=== PATIENT | female | born 1950 | race Caucasian/White ===

== ENCOUNTER 2018-07-21 13:34 | Inpatient (IN) ==
[2018-07-21] MEDS ORDERED: 0.9 % Sodium Chloride 1,000 ML IVC ONE (14:24)
--- NOTE | 2018-07-21 14:29 | Emergency Department Note ---
Disposition Clinical Impression: Hypernatremia, Anorexia, Severe dehydration, Protein malnutrition, Unable to maintain weight Failure to thrive Qualifiers: Failure to thrive age range: in adult Qualified Code(s): R62.7 - Adult failure to thrive Disposition: Admitted As Inpatient Condition: Fair General Adult HPI - General Chief complaint: ED General Medical Stated complaint: Dehydration Time Seen by Provider: 07/21/18 13:58 Source: patient Limitations: no limitations - History of Present Illness Pain Scale: 8 - Related Data Home Medications Medication Instructions Recorded Confirmed RX: Cyanocobalamin (Vitamin B-12) 500 mcg PO DAILY 07/14/16 07/21/18 [B-12] RX: Ergocalciferol (VITAMIN D2) 400 unit PO DAILY 07/14/16 07/21/18 [Vitamin D] RX: Folic Acid 0.4 mg PO DAILY 07/14/16 07/21/18 RX: Folic Acid/Multivit-Min/Lutein 1 tab PO DAILY 07/14/16 07/21/18 [Centrum Silver Chewable Tablet] RX: Megestrol Acetate [Megace] 400 mg PO TIDWM 07/14/16 07/21/18 RX: Potassium Chloride [Klor-Con 10 meq PO BID 07/14/16 07/21/18 Sprinkle] RX: Pyridoxine HCl [Vitamin B-6] 50 mg PO DAILY 07/14/16 07/21/18 RX: Raloxifene [Evista] 60 mg PO DAILY 08/19/16 07/21/18 RX: Omeprazole 20 mg PO DAILY 12/26/16 07/21/18 Previous Rx's Medication Instructions Recorded RX: Buspirone HCl [Buspar] 5 mg PO BID 30 Days tablet 08/21/16 Allergies Allergy/AdvReac Type Severity Reaction Status Date / Time No Known Allergies Allergy Verified 03/20/18 15:26 Past Medical History - Past Medical History Medical history: Reports: arthritis, other Surgical history: Reports: herniorrhaphy, orthopedic, other, other Psychiatric history: Reports: anxiety, depression 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 - Social History Smoking Status: Never smoker Smokeless Tobacco Status: No Alcohol use: Reports: none Drug use: Reports: none Physical Exam - General Limitations: no limitations General appearance: alert Course Vital Signs Temperature 98.3 F 07/21/18 13:52 Pulse Rate 80 07/21/18 13:52 Respiratory Rate 14 07/21/18 13:52 Blood Pressure 119/74 07/21/18 13:52 O2 Sat by Pulse Oximetry 99 07/21/18 13:52 Temperature 98.3 F 07/21/18 14:00 Pulse Rate 64 07/21/18 15:34 Respiratory Rate 15 07/21/18 15:34 Blood Pressure 144/77 07/21/18 15:34 O2 Sat by Pulse Oximetry 100 07/21/18 15:34 Oxygen Delivery Oxygen Delivery Room Air Medical Decision Making - Lab Data Result diagrams: 07/21/18 14:40 07/21/18 14:40 Lab Results 07/21/18 07/21/18 Range/Units 14:40 14:40 WBC 5.6 (4.3-11.1) K/mcL RBC 4.60 (3.82-4.97) M/mcL Hgb 13.9 (11.5-15.4) g/dL Hct 45.5 H (35.3-44.9) % MCV 98.9 (83.0-100.0) fL MCH 30.2 (28.0-33.3) pg MCHC 30.5 L (31.6-35.5) g/dL RDW 13.4 (11.5-14.5) % Plt Count 196 (140-400) K/mcL MPV 11.3 (9.4-12.4) fL Immature Gran % 0.2 (0-4) % Seg Neutrophils % 58.7 % Lymphocytes % 30.5 % Monocytes % 6.3 % Eosinophils % 3.4 % Basophils % 0.9 % Neutrophils # 3.3 (1.6-8.9) K/mcL Lymphocytes # 1.7 (0.6-4.6) K/mcL Monocytes # 0.4 (0.0-1.3) K/mcL Eosinophils # 0.2 (0.0-0.6) K/mcL Basophils # 0.1 (0.0-0.2) K/mcL Sodium 156 H (136-145) mEq/L Potassium 3.7 (3.5-5.1) mEq/L Chloride 117 H (98-107) mEq/L Carbon Dioxide 29 (23-29) mEq/L BUN 38 H (8-23) mg/dL Creatinine 1.22 H (0.60-1.20) mg/dL Est GFR ( Amer) 53 L (> 60) Est GFR (Non-Af Amer) 44 L (> 60) BUN/Creatinine Ratio 31 H (6-26) Glucose 89 (70-105) mg/dL Calculated Osmolality 331 H (280-300) Calcium 9.8 (8.6-10.3) mg/dL Magnesium 2.1 (1.6-2.6) mg/dL Attestation Statement - Attestation Attestation: Resident Attestation: I examined this patient and my medical decision making was reviewed with the Resident Physician. I agree with the documented findings, disposition and treatment plan as described except to the extent set forth below. We independently had [id number] contact with the patient. Resident physician Dr. Hector Soares Please see resident note for further details an disposition Patient with a history of anxiety, depression, eating disorder, hypernatremia, chronic kidney disease presenting today for evaluation of concern for dehydration. She states that she has a chronic problem with an elevated sodium and not being able to drink enough water. Her last admission she had been told by nephrology that she does drink a gallon of water daily. Patient states she has been unable to keep up with this request. The patient is known to me as I have told him multiple times in the past. She has had sodiums as high as 170. She has had acute kidney injury with a creatinine as high as 4. She states that her skin in her mouth feel dry. She had an episode of feeling lightheaded that self resolved. She has not had any fevers chills chest pain cough abdominal pain or change in bowel movements. Patient will undergo further evaluation of both her sodium as well as creatinine, urinalysis and IV hydration therapy. Labs pending. Disposition pending.
[2018-07-21 15:18] LABS: Calcium 9.8 mg/dL (8.6-10.3); Magnesium 2.1 mg/dL (1.6-2.6); Potassium 3.7 mEq/L (3.5-5.1)
[2018-07-21 15:34] LABS: Basophils # 0.1 K/mcL (0.0-0.2); Basophils % 0.9 %; Eosinophils # 0.2 K/mcL (0.0-0.6); Eosinophils % 3.4 %; Hematocrit 45.5 % (35.3-44.9); Hemoglobin 13.9 g/dL (11.5-15.4); Immature Granulocytes % 0.2 % (0-4); Lymphocytes # 1.7 K/mcL (0.6-4.6); Lymphocytes % 30.5 %; Mean Corpuscular HGB Conc 30.5 g/dL (31.6-35.5); Mean Corpuscular Hemoglobin 30.2 pg (28.0-33.3); Mean Corpuscular Volume 98.9 fL (83.0-100.0); Mean Platelet Volume 11.3 fL (9.4-12.4); Monocytes # 0.4 K/mcL (0.0-1.3); Monocytes % 6.3 %; Neutrophils # 3.3 K/mcL (1.6-8.9); Platelet Count 196 K/mcL (140-400); Red Cell Distribution Width 13.4 % (11.5-14.5); Segmented Neutrophils % 58.7 %
--- NOTE | 2018-07-21 16:13 | Emergency Department Note ---
Disposition Clinical Impression: Hypernatremia, Anorexia, Severe dehydration, Protein malnutrition, Unable to maintain weight Failure to thrive Qualifiers: Failure to thrive age range: in adult Qualified Code(s): R62.7 - Adult failure to thrive Disposition: Admitted As Inpatient Condition: Fair Referrals: Asher Washington Jr, MD [Primary Care Provider] - Forms: ED Satisfaction Letter, Work/School Release Time of Disposition: 15:37 General Adult HPI - General Chief complaint: ED General Medical Stated complaint: Dehydration Time Seen by Provider: 07/21/18 13:58 Source: patient Mode of arrival: ambulatory Limitations: no limitations Nursing Notes Reviewed: Yes Vital Signs Reviewed: Yes - History of Present Illness HPI Narrative: Patient presents to the ED with the chief complaint of dehydration. Patient has multiple psychiatric histories with eating disorders which is led to chronic dehydration and hypernatremia. She has not had a formal diagnosis yet. States that she tries to keep up with her eating, but she is just unable to adequately take care of herself since her 3 years ago. She is presenting today with dehydration. States that she has been trying to eat and drink that she just cannot. Complaining of very dry, cracked lips. No fever or chills. No chest pain or shortness of breath. Denies any abdominal pain. Has had some decreased urination. No rashes or other concerns. Pain Scale: 8 - Related Data Home Medications Medication Instructions Recorded Confirmed Cyanocobalamin (Vitamin B-12) 500 mcg PO DAILY 07/14/16 04/07/18 [B-12] Ergocalciferol (VITAMIN D2) 400 unit PO DAILY 07/14/16 04/07/18 [Vitamin D] Folic Acid 0.4 mg PO DAILY 07/14/16 04/07/18 Folic Acid/Multivit-Min/Lutein 1 tab PO DAILY 07/14/16 04/07/18 [Centrum Silver Chewable Tablet] Megestrol Acetate [Megace] 400 mg PO TIDWM 07/14/16 04/07/18 Potassium Chloride [Klor-Con 10 meq PO BID 07/14/16 04/07/18 Sprinkle] Pyridoxine HCl [Vitamin B-6] 50 mg PO DAILY 07/14/16 04/07/18 Raloxifene [Evista] 60 mg PO DAILY 08/19/16 04/07/18 Omeprazole 20 mg PO DAILY 12/26/16 04/07/18 Previous Rx's Medication Instructions Recorded Buspirone HCl [Buspar] 5 mg PO BID 30 Days tablet 08/21/16 Mirtazapine [Remeron] 7.5 mg PO HS 30 Days tablet 08/21/16 Acetaminophen [Tylenol] 500 mg PO Q6HR PRN #20 tablet 12/12/17 Allergies Allergy/AdvReac Type Severity Reaction Status Date / Time No Known Allergies Allergy Verified 03/20/18 15:26 Review of Systems: As reviewed in the HPI. All other systems reviewed are negative or normal. Past Medical History - Past Medical History Attestation: Yes The following information was validated with the patient. 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 history - Social History Smoking Status: Never smoker Smokeless Tobacco Status: No Alcohol use: Reports: none Drug use: Reports: none Physical Exam CONSTITUTIONAL: [Chronically ill, cachectic] EYES: [EOMI, clear conjunctiva, PERRLA] HENT: [Normocephalic, atraumatic, dry and cracked mucus membranes, normal oropharynx] NECK: [normal inspection, full ROM, trachea midline, no obvious swelling] PULMONARY: [normal lung sounds bilaterally, normal chest rise and fall, no respiratory distress or stridor, no wheezes, no rales, no rhonchi CARDIOVASCULAR: [regular rate, regular rhythm, normal heart sounds, no murmurs, distal extremities are warm and well perfused] GASTROINSTESTINAL: [soft, non-tender, non-rigid, non-distended, no guarding, no rebound, normal bowel sounds] GENITOURINARY/RECTAL: [deferred] NEUROLOGIC: [Alert, oriented x3, normal speech, moves all extremities] EXTREMITIES: [Normal inspection, full ROM, no tenderness, no pedal edema, normal capillary refill] MUSCULOSKELETAL: [no gross deformities, atraumatic] SKIN: [No cyanosis, no diaphoresis, normal color, warm, no rash] PSYCHIATRIC: [Flat affect]+ - General Limitations: no limitations General appearance: alert Course Course Narrative: frail appearing 67 year old presenting with dehydration. States she feels like she may need to be admitted since she hasn't been able to eat/drink lately. Will check labs. patient is hyperNa and Cl. Did not receive initial NS bolus so will switch to 1/2NS and eventually D51/2 for MIVF. Admitted to Dr. jacob for MYLES and rehydration. Vital Signs Temperature 98.3 F 07/21/18 13:52 Pulse Rate 80 07/21/18 13:52 Respiratory Rate 14 07/21/18 13:52 Blood Pressure 119/74 07/21/18 13:52 O2 Sat by Pulse Oximetry 99 07/21/18 13:52 Temperature 98.3 F 07/21/18 14:00 Pulse Rate 80 07/21/18 14:00 Respiratory Rate 14 07/21/18 14:00 Blood Pressure 119/74 07/21/18 14:00 O2 Sat by Pulse Oximetry 99 07/21/18 14:00 Oxygen Delivery Oxygen Delivery Room Air Medical Decision Making - Lab Data Result diagrams: 07/21/18 14:40 Lab Results 07/21/18 Range/Units 14:40 Sodium 156 H (136-145) mEq/L Potassium 3.7 (3.5-5.1) mEq/L Chloride 117 H (98-107) mEq/L Carbon Dioxide 29 (23-29) mEq/L BUN 38 H (8-23) mg/dL Creatinine 1.22 H (0.60-1.20) mg/dL Est GFR ( Amer) 53 L (> 60) Est GFR (Non-Af Amer) 44 L (> 60) BUN/Creatinine Ratio 31 H (6-26) Glucose 89 (70-105) mg/dL Calculated Osmolality 331 H (280-300) Calcium 9.8 (8.6-10.3) mg/dL Magnesium 2.1 (1.6-2.6) mg/dL
[2018-07-21 16:39] LABS: Bilirubin,Urine Moderate (Negative); Blood,Urine Negative (Negative); Clarity,Urine Clear (Clear); Ketones,Urine Trace mg/dL (Negative); Leukocyte Esterase,Urine Trace (Negative); Nitrite,Urine Negative (Negative); PH,Urine 5.5 pH Units (5.0-8.0); Protein,Urine 100 mg/dL (Neg-Trace); Urobilinogen,Urine Normal (Normal)
[2018-07-21 16:41] LABS: Bacteria,Urine None Seen per hpf (None-Few); Squamous Epithelial Cell,Urine Many per lpf (None-Few)
[2018-07-21 16:45] LABS: Color,Urine Yellow (Yellow); Glucose,Urine (UA) Normal (Normal)
[2018-07-21 17:03] LABS: Mucus,Urine Many (Few)
[2018-07-21 17:04] LABS: Calcium Oxalate Crystals,Urine Present; Hyaline Casts,Urine Few per lpf (None-Few)
--- NOTE | 2018-07-21 17:07 | Internal Med History&Physical ---
<Van Herrera - Last Filed: 07/21/18 17:56> Date of Encounter: 07/21/18 Time of Encounter: 17:01 Internal Medicine - H&P: HPI Chief complaint: dehydration Admitted From: Home Plans for Post Hospital Care: Home History of present illness: Ms. Coy is a 67 year old female presented to [facility] ED today with concerns for dehydration with dizziness and weakness last night. Past medical history of depr ession,anxiety, chronic hypernatremia, chronic kidney disease, eating disorder/anorexia. Patient presented to the emergency department with an elevated sodium of 156 (appears average Sodium ranges from 140-150s, has been as high as 180). UA negative for infection, though with trace ketones and moderate bilirubin. Cr elevated at 1.22 but this is only slightly up from last Cr of 1.13 on 04/11/18. Patient states she tries very hard to drink 1 gallon of water per day as recommended by the reception centre manager that she previously saw while inpatient for dehydration in March 2018. At that time workup was done ruling out Diabetes Insipidus. She did not follow up in the Nephrology Clinic. Follows with PCP, Dr. Washington. States only ate breakfast today. but has been drinking water more frequently since dizziness last night, dizziness since resolved. No syncope, falls, confusion. She denies dysphagia, dyspnea, chest pain, abdominal pain, nausea, vomiting, diarrhea, dysuria, edema, numbness or tingling. Admits chronic R hip pain, controlled with 1 Aleve daily (in the AM). Past Med Surg Social Fam HX - Past Medical History Medical history: arthritis, other Additional medical history: anxiety. HISTORY OF GASTRIC ULCER. VERTIGO Psychiatric history: anxiety, depression - Past Surgical History Surgical History: herniorrhaphy, orthopedic, other, other Additional surgical history: egd,ear,tonsils,vulvar bx,colonoscopy - Social History Smoking Status: Never smoker Smokeless Tobacco Status: No Alcohol use: none Drug use: none - Family History Brother Living Status: Hx Family Cardiac Disorders: Yes Internal Medicine - H&P: Meds Cyanocobalamin (Vitamin B-12) [B-12] 500 mcg PO DAILY 07/14/16 [History] Ergocalciferol (VITAMIN D2) [Vitamin D] 400 unit PO DAILY 07/14/16 [History] Folic Acid 0.4 mg PO DAILY 07/14/16 [History] Folic Acid/Multivit-Min/Lutein [Centrum Silver Chewable Tablet] 1 tab PO DAILY 07/14/16 [History] Megestrol Acetate [Megace] 400 mg PO TIDWM 07/14/16 [History] Potassium Chloride [Klor-Con Sprinkle] 10 meq PO BID 07/14/16 [History] Pyridoxine HCl [Vitamin B-6] 50 mg PO DAILY 07/14/16 [History] Raloxifene [Evista] 60 mg PO DAILY 08/19/16 [History] Buspirone HCl [Buspar] 5 mg PO BID 30 Days tablet 08/21/16 [Rx] Omeprazole 20 mg PO DAILY 12/26/16 [History] Allergy/AdvReac Type Severity Reaction Status Date / Time No Known Allergies Allergy Verified 03/20/18 15:26 All Systems PM: A 10-system review of systems was performed and is negative for pertinent findings except as documented above in the HPI. - Constitutional Vitals: Temp Pulse Resp BP Pulse Ox 97.7 F 62 14 147/45 94 07/21/18 16:42 07/21/18 16:42 07/21/18 16:42 07/21/18 16:42 07/21/18 16:42 General appearance: Present: cachectic, cooperative, A&O X 3, pleasant, no acute distress, answers questions appropriately Exam: . - Head Head exam: Present: atraumatic, normocephalic - Eye Eye exam: Present: PERRL, conjuntiva pink, sclera anicteric Pupils: Present: PERRL - Neck Neck exam general surgery: Present: full ROM, supple, trachea midline - Respiratory Respiratory exam: Present: CTAB. Absent: accessory muscle use, rales, rhonchi, wheezes - Cardiovascular Cardiovascular exam: Present: RRR, +S1, +S2. Absent: diastolic murmur, gallop, rubs, systolic murmur - GI/Abdominal GI/Abdominal exam: Present: normal bowel sounds, soft, no peritoneal signs. Absent: distended, tenderness - Extremities Exam Extremities exam: Present: warm, radial pulses palpable and symmetrical. Absent: calf tenderness, cyanotic, pedal edema - Neurological Exam Neurological exam: Present: alert, oriented X3, no focal deficits, strengths equal and symetr throughout. Absent: facial droop, speech deficit - Psychiatric Psychiatric exam: Present: normal affect, normal mood - Skin Skin exam: Present: dry, intact Internal Med - H&P Results - Labs CBC & Chem 7: 07/21/18 14:40 07/21/18 14:40 Labs: Short CBC 07/21/18 Range/Units 14:40 WBC 5.6 (4.3-11.1) K/mcL Hgb 13.9 (11.5-15.4) g/dL Hct 45.5 H (35.3-44.9) % Plt Count 196 (140-400) K/mcL Neutrophils # 3.3 (1.6-8.9) K/mcL BMP 07/21/18 14:40 Sodium 156 H Potassium 3.7 Chloride 117 H Carbon Dioxide 29 BUN 38 H Creatinine 1.22 H Glucose 89 Calcium 9.8 Urine 07/21/18 Range/Units 15:17 Urine Color Yellow (Yellow) Urine Clarity Clear (Clear) Urine pH 5.5 (5.0-8.0) pH Units Ur Specific [place] 1.020 (1.010-1.025) Urine Protein 100 H (Neg-Trace) mg/dL Urine Glucose (UA) Normal (Normal) mg/dL - Assessment and plan (1) Hypernatremia Current Visit: Yes Status: Acute Assessment and plan: Acute on Chronic hypernatremia, above baseline with Sodium 156. Patient received NS bolus in the ED. Plan to continue rehydration with D5 1/2NS. Will check BMP Q6H to monitor electrolytes. May need to adjust monitor frequency and fluids if correcting too quickly. (2) Dehydration Current Visit: Yes Status: Acute Assessment and plan: Recurrent dehydration. Last admitted for dehydration March 2018. Likely 2/2 to eating disorder, poor PO intake. Dizziness resolved prior to admission. See plan above for rehydration. (3) Anorexia Current Visit: Yes Status: Chronic Assessment and plan: Anorexia and severe protein malnutrition with BMI of 12.6 Restarting patient's home psych meds. Likely would benefit from psych follow up. Will also start remeron for appetite stimulation. Ensure with meals. Consider nutrition evaluation. (4) Protein malnutrition Current Visit: Yes Status: Chronic Assessment and plan: see plan for anorexia (5) Body mass index (BMI) less than 16.5 Current Visit: Yes Status: Chronic (6) CKD (chronic kidney disease), stage III Current Visit: No Status: Chronic Assessment and plan: Creatinine elevated at 1.22. This is only slightly elevated from baseline (1.0- 1.1) Creatinine was 1.13 at discharge on 04/11/18). Possible start of MYLES with dehydration. Treatment with fluid as above. Will continue to monitor kidney function. Work to avoid nephrotoxic medications. Patient takes Aleve daily, will attempt to control pain with only tylenol, could consider restarting NSAID if kidney function stablizes. (7) Chronic right hip pain Current Visit: Yes Status: Chronic Assessment and plan: chronic,controlled on Aleve 220mg once daily. Holding for elevate creatinine. Will start PRN tylenol for pain. Will continue to follow and reassess for pain management. - Time Spent With Patient Total time spent is greater than 50% in coordination of care (as documented) at patient's floor/unit and/or counseling patient: 25 - 35 minutes <Angela Stark - Last Filed: 07/22/18 07:41> Time of Encounter: 17:30 Internal Medicine - H&P: HPI History of present illness: Ms. Coy is a 67 year old female All Systems PM: A 10-system review of systems was performed and is negative for pertinent findings except as documented above in the HPI. - Constitutional Vitals: Temp Pulse Resp BP Pulse Ox 98.3 F 62 14 108/64 97 07/22/18 06:50 07/22/18 06:50 07/22/18 06:50 07/22/18 06:50 07/22/18 06:50 Internal Med - H&P Results - Labs CBC & Chem 7: 07/21/18 14:40 07/22/18 02:00 Labs: Short CBC 07/21/18 Range/Units 14:40 WBC 5.6 (4.3-11.1) K/mcL Hgb 13.9 (11.5-15.4) g/dL Hct 45.5 H (35.3-44.9) % Plt Count 196 (140-400) K/mcL Neutrophils # 3.3 (1.6-8.9) K/mcL BMP 10/30/18 10/30/18 10/31/18 14:40 19:54 02:00 Sodium 156 H 156 H 152 H Potassium 3.7 3.2 L 3.2 L Chloride 117 H 116 H 118 H Carbon Dioxide 29 30 H 29 BUN 38 H 34 H 32 H Creatinine 1.22 H 1.04 1.00 Glucose 89 92 100 Calcium 9.8 9.3 8.5 L Urine 07/21/18 Range/Units 15:17 Urine Color Yellow (Yellow) Urine Clarity Clear (Clear) Urine pH 5.5 (5.0-8.0) pH Units Ur Specific [place] 1.020 (1.010-1.025) Urine Protein 100 H (Neg-Trace) mg/dL Urine Glucose (UA) Normal (Normal) mg/dL - Time Spent With Patient Total time spent is greater than 50% in coordination of care (as documented) at patient's floor/unit and/or counseling patient: - Attending Attestation I saw evaluated and examined this patient and my medical decision-making was reviewed with the Resident Physician, Van Herrera. I agree with the documented findings, disposition and treatment plan as described except to any changes set forth below. We independently had [id number] contact with the patient. 67-year-old female patient with history of chronic hyponatremia presented to to the ER with complaints of dehydration. Patient reports that she has been feeling weak and tired. She does have poor appetite and has not been able to eat much recently due to issues with her dentures. She got new dentures and has been able to eat better but now she is also having trouble to prepare meals due to chronic right-sided hip pain. She does not have any trouble swallowing. She denies any nausea or vomiting. She denies any diarrhea. General: Patient is alert, no acute distress, oriented x 3 underweight Respiratory: Good respiratory effort. Normal breath sounds. No wheezing or crackles. Cardiovascular: Regular rate and rhythm. s1 and s2 normal No clicks, rubs, gallops, or murmurs. No pedal edema Abdomen: Abdomen is soft, nontender. Bowel sounds are present Musculoskeletal: Spontaneously moving all extremities Skin: warm, dry, intact. Neuro: Alert oriented x 3 normal cranial nerves, no focal deficits Sodium 156, chloride 117, BNP 38, creatinine 1.22. Patient with acute hypernatremia on chronic hypernatremia: Patient with acute on chronic hyponatremia. Most likely related to dehydration and inadequate water intake. Has been evaluated by nephrology and past for the same condition but has not been able to follow up with them as outpatient. Continue to monitor sodium levels while infusing D5 half NS. Monitor closely to allow for less than 8-10 decrease in Na per 24 hrs. Anorexia: Most likely related to underlying depression. We will restart Megace. Also place patient on Remeron. Dehydration: Continue IV fluids. Monitor renal function and urine output closely. Depression: Patient does need to follow up with psychiatry as outpatient. For now we will start Remeron. Patient takes buspar for anxety. Will resumethis medication also. Chronic kidney disease stage III: Patient does appear to have chronic kidney disease stage III. And showed baseline because all the labs that we have here during her hospitalization here. We will follow renal function closely as she received IV fluids. Monitor input and output.
[2018-07-21] MEDS ORDERED: Acetaminophen 325 MG TABLET PO PRN (18:00)
--- NOTE | 2018-07-21 18:03 | Event Note ---
Date of Encounter: 07/21/18 Time of Encounter: 17:30 I saw evaluated and examined this patient and my medical decision-making was reviewed with the Resident Physician, Van Herrera. I agree with the documented findings, disposition and treatment plan as described except to any changes set forth below. We independently had [id number] contact with the patient. 67-year-old female patient with history of chronic hyponatremia presented to to the ER with complaints of dehydration. Patient reports that she has been feeling weak and tired. She does have poor appetite and has not been able to eat much recently due to issues with her dentures. She got new dentures and has been able to eat better but now she is also having trouble to prepare meals due to chronic right-sided hip pain. She does not have any trouble swallowing. She denies any nausea or vomiting. She denies any diarrhea. General: Patient is alert, no acute distress, oriented x 3 underweight Respiratory: Good respiratory effort. Normal breath sounds. No wheezing or crackles. Cardiovascular: Regular rate and rhythm. s1 and s2 normal No clicks, rubs, gallops, or murmurs. No pedal edema Abdomen: Abdomen is soft, nontender. Bowel sounds are present Musculoskeletal: Spontaneously moving all extremities Skin: warm, dry, intact. Neuro: Alert oriented x 3 normal cranial nerves, no focal deficits Sodium 156, chloride 117, BNP 38, creatinine 1.22. Patient with acute hypernatremia on chronic hypernatremia: Patient with acute on chronic hyponatremia. Most likely related to dehydration and inadequate water intake. Has been evaluated by nephrology and past for the same condition but has not been able to follow up with them as outpatient. Continue to monitor sodium levels while infusing D5 half NS. Monitor closely to allow for less than 8-10 decrease in Na per 24 hrs. Anorexia: Most likely related to underlying depression. We will restart Megace. Also place patient on Remeron. Dehydration: Continue IV fluids. Monitor renal function and urine output closely. Depression: Patient does need to follow up with psychiatry as outpatient. For now we will start Remeron. Patient also reportedly takes citalopram. Will resume restart this medication also. Chronic kidney disease stage III: Patient does appear to have chronic kidney disease stage III. And showed baseline because all the labs that we have here during her hospitalization here. We will follow renal function closely as she received IV fluids. Monitor input and output.
[2018-07-21] MEDS: Mirtazapine 15 MG TABLET PO SCH (20:22)
[2018-07-21 20:25] LABS: BUN/Creatinine Ratio 33 (6-26); Blood Urea Nitrogen 34 mg/dL (8-23); Calcium 9.3 mg/dL (8.6-10.3); Carbon Dioxide 30 mEq/L (23-29); Chloride 116 mEq/L (98-107); Glucose 92 mg/dL (70-105); Osmolality,Calculated 329 (280-300); Potassium 3.2 mEq/L (3.5-5.1); Sodium 156 mEq/L (136-145); eGFR For Non-African Americans 53 (> 60)
[2018-07-22 03:03] LABS: BUN/Creatinine Ratio 32 (6-26); Blood Urea Nitrogen 32 mg/dL (8-23); Calcium 8.5 mg/dL (8.6-10.3); Chloride 118 mEq/L (98-107); Glucose 100 mg/dL (70-105); Osmolality,Calculated 321 (280-300); Potassium 3.2 mEq/L (3.5-5.1); Sodium 152 mEq/L (136-145); eGFR For Non-African Americans 55 (> 60)
[2018-07-22 03:28] LABS: Carbon Dioxide 29 mEq/L (23-29)
[2018-07-22] MEDS ORDERED: D5% in Water 1,000 ML IVC SCH ×2 (07:45→21:45)
[2018-07-22] MEDS: Megestrol Acetate 400 MG/10 ML UDC PO SCH ×3 (08:32→16:45)
[2018-07-22] MEDS: Multivit/Ca/Min/Fe/FA 1 TAB TABLET PO SCH (08:32)
[2018-07-22] MEDS: Cholecalciferol (D-3) 1,000 UNIT TABLET PO SCH (08:32)
[2018-07-22] MEDS: Pyridoxine (B-6) 50 MG TABLET PO SCH (08:32)
[2018-07-22] MEDS: Cyanocobalamin (B-12) 1,000 MCG TABLET PO SCH (08:33)
[2018-07-22] MEDS: Folic Acid 1 MG TABLET PO SCH (08:33)
[2018-07-22 08:43] LABS: BUN/Creatinine Ratio 29 (6-26); Blood Urea Nitrogen 28 mg/dL (8-23); Calcium 8.4 mg/dL (8.6-10.3); Carbon Dioxide 26 mEq/L (23-29); Chloride 117 mEq/L (98-107); Glucose 104 mg/dL (70-105); Osmolality,Calculated 310 (280-300); Potassium 3.9 mEq/L (3.5-5.1); Sodium 147 mEq/L (136-145); eGFR For Non-African Americans 58 (> 60)
[2018-07-22 13:35] LABS: BUN/Creatinine Ratio 28 (6-26); Blood Urea Nitrogen 24 mg/dL (8-23); Calcium 8.5 mg/dL (8.6-10.3); Carbon Dioxide 26 mEq/L (23-29); Chloride 114 mEq/L (98-107); Glucose 114 mg/dL (70-105); Osmolality,Calculated 309 (280-300); Potassium 4.2 mEq/L (3.5-5.1); Sodium 147 mEq/L (136-145); eGFR For Non-African Americans > 60 (> 60)
--- NOTE | 2018-07-22 14:12 | Internal Med Progress Note ---
Hospitalist Progress Note - Encounter Date of Encounter: 07/22/18 Time of Encounter: 14:10 - Subjective Interval History: Patient feels much better today. She is able to eat better. Drinking fluids better. Denies any dizziness or tiredness. No nausea or vomiting or abdominal pain. - Exam Vitals: Temp Pulse Resp BP Pulse Ox 98.0 F 65 14 137/74 93 07/22/18 11:49 07/22/18 11:49 07/22/18 11:49 07/22/18 11:49 07/22/18 11:49 Exam: General: Patient is alert, no acute distress, oriented x 3, underweight Respiratory: Good respiratory effort. Normal breath sounds. No wheezing or crackles. Cardiovascular: Regular rate and rhythm. s1 and s2 normal No clicks, rubs, gallops, or murmurs. No pedal edema Abdomen: Abdomen is soft, nontender. Bowel sounds are present Musculoskeletal: Spontaneously moving all extremities Skin: warm, dry, intact. Neuro: Alert oriented x 3 normal cranial nerves, no focal deficits - Assessment and Plan (1) Hypernatremia Current Visit: Yes Status: Acute Assessment and Plan: Improving. Sodium level was 152 earlier this morning and has since improved to 147. We will stop IV fluids to prevent overcorrection. Continue to monitor sodium levels. Encouraged oral hydration. (2) Anorexia Current Visit: Yes Status: Chronic Assessment and Plan: Improving. Patient tolerating diet better today. Encouraged to drink free mohan er. (3) Body mass index (BMI) less than 16.5 Current Visit: Yes Status: Chronic Assessment and Plan: Place patient on nutritional supplements and appetite stimulants including Megace. (4) Chronic right hip pain Current Visit: Yes Status: Chronic Assessment and Plan: Better controlled. Continue Tylenol (5) CKD (chronic kidney disease), stage III Current Visit: Yes Status: Chronic Assessment and Plan: Creatinine improved today. His 0.87. (6) Dehydration Current Visit: Yes Status: Acute Assessment and Plan: Improving with IV hydration. (7) Protein malnutrition Current Visit: Yes Status: Chronic Assessment and Plan: On nutrition supplements. (8) Major depression, recurrent Current Visit: Yes Status: Chronic Assessment and Plan: Chronic depression. With anxiety. Continue BuSpar. Patient has also been started on Remeron. Follow-up outpatient. Does need to follow up with psychiatrist after discharge. - Time Spent with Patient Total time spent is greater than 50% in coordination of care (as documented) at patient's floor/unit and/or counseling patient: Internal Medicine: Result - Labs CBC & Chem 7: 07/21/18 14:40 07/22/18 13:10 Labs: Short CBC 07/21/18 Range/Units 14:40 WBC 5.6 (4.3-11.1) K/mcL Hgb 13.9 (11.5-15.4) g/dL Hct 45.5 H (35.3-44.9) % Plt Count 196 (140-400) K/mcL Neutrophils # 3.3 (1.6-8.9) K/mcL BMP 07/21/18 07/21/18 07/22/18 14:40 19:54 02:00 Sodium 156 H 156 H 152 H Potassium 3.7 3.2 L 3.2 L Chloride 117 H 116 H 118 H Carbon Dioxide 29 30 H 29 BUN 38 H 34 H 32 H Creatinine 1.22 H 1.04 1.00 Glucose 89 92 100 Calcium 9.8 9.3 8.5 L 07/22/18 07/22/18 08:08 13:10 Sodium 147 H 147 H Potassium 3.9 4.2 Chloride 117 H 114 H Carbon Dioxide 26 26 BUN 28 H 24 H Creatinine 0.95 0.87 Glucose 104 114 H Calcium 8.4 L 8.5 L Urine 07/21/18 Range/Units 15:17 Urine Color Yellow (Yellow) Urine Clarity Clear (Clear) Urine pH 5.5 (5.0-8.0) pH Units Ur Specific [place] 1.020 (1.010-1.025) Urine Protein 100 H (Neg-Trace) mg/dL Urine Glucose (UA) Normal (Normal) mg/dL Consult Discharge Plan - Plan Referrals: Asher Washington Jr, MD [Primary Care Provider] - (8) Major depression, recurrent Qualifiers: Active/Remission status: currently active Major depression episode severity: moderate Qualified Code(s): F33.1 - Major depressive disorder, recurrent, moderate
[2018-07-22] MEDS: Mirtazapine 15 MG TABLET PO SCH (20:43)
[2018-07-23 01:37] LABS: Basophils % 0.8 %; Eosinophils # 0.2 K/mcL (0.0-0.6); Eosinophils % 4.4 %; Hematocrit 40.5 % (35.3-44.9); Hemoglobin 12.6 g/dL (11.5-15.4); Immature Granulocytes % 0.2 % (0-4); Lymphocytes # 1.6 K/mcL (0.6-4.6); Lymphocytes % 31.6 %; Mean Corpuscular HGB Conc 31.1 g/dL (31.6-35.5); Mean Corpuscular Hemoglobin 29.9 pg (28.0-33.3); Mean Corpuscular Volume 96.2 fL (83.0-100.0); Mean Platelet Volume 11.4 fL (9.4-12.4); Monocytes # 0.4 K/mcL (0.0-1.3); Neutrophils # 2.7 K/mcL (1.6-8.9); Platelet Count 183 K/mcL (140-400); Red Blood Count 4.21 M/mcL (3.82-4.97)
[2018-07-23 01:55] LABS: BUN/Creatinine Ratio 25 (6-26); Blood Urea Nitrogen 24 mg/dL (8-23); Calcium 8.3 mg/dL (8.6-10.3); Carbon Dioxide 26 mEq/L (23-29); Chloride 115 mEq/L (98-107); Glucose 164 mg/dL (70-105); Osmolality,Calculated 314 (280-300); Potassium 3.3 mEq/L (3.5-5.1); Sodium 148 mEq/L (136-145); eGFR For Non-African Americans 58 (> 60)
[2018-07-23] MEDS ORDERED: *HR* Heparin 5,000 UNIT/ML VIAL SQ SCH (06:00)
--- NOTE | 2018-07-23 08:48 | Internal Med Progress Note ---
Hospitalist Progress Note - Encounter Date of Encounter: 07/23/18 Time of Encounter: 08:34 - Subjective Interval History: Hospital day 2 Ms. Coy is a 67 Yo Female with a chronic h/o hypernatremia(avg Na 140-150s), anxiety/depression, CKD, eating disorder/anorexia.Pt presented to the ED c/o dehydration, weakness and dizziness that occurred the night before. Her initial Na on arrival was 156. 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 She states she feels better today. She admits to mild fatigue and denies fever, NVD, dizziness, chest pain, SOB, dysphagia, abdominal pain, hematuria, dysuria, edema, numbness, tingling, weakness. She states she has had normal BM and having normal urine output. She admits to eating and drinking well, and was eating breakfast when I entered the room. - Exam Vitals: Temp Pulse Resp BP Pulse Ox 98.1 F 60 15 96/59 97 07/23/18 07:24 07/23/18 07:24 07/23/18 07:24 07/23/18 07:24 07/23/18 07:24 Exam: General: AAOX3, NAD, cachectic HEENT: normocephalic, atraumatic Cardiovascular: RRR, no rubs, no murmurs Lungs: CTAB, no wheezing, no rhonchi Abdomen: Normal BSX4, soft nondistended, nontedner to palpation Extremities: no leg edema Skin: warm, dry and intact - Assessment and Plan (1) Hypernatremia Current Visit: Yes Status: Acute Assessment and Plan: Acute on chronic hypernatremia, h/o eating disorder and anorexia, poor PO intake Initial Na was 156 on 07/21/18 Na on 07/22/18 was 149-->today Na is 148 Plan: -IVF were d/c -currently on IV D5% in water -continue to monitor Na level -encourage oral rehydration (2) Dehydration Current Visit: Yes Status: Acute Assessment and Plan: Plan: -IVF d/c -currently on D5% in water -continue oral rehydration -on potassium chloride tab (3) Anorexia Current Visit: Yes Status: Chronic Assessment and Plan: pt tolerating diet well Plan -oral rehydration -continue dietary supplement ensure (4) Protein malnutrition Current Visit: Yes Status: Chronic Assessment and Plan: plan -currently on dietary supplement ensure with all meals (5) Major depression, recurrent Current Visit: Yes Status: Chronic Assessment and Plan: chronic h/o depression and anxiety Plan: -currently on Buspar and remeron -f/u outpatient with psychiatry (6) CKD (chronic kidney disease), stage III Current Visit: Yes Status: Chronic Assessment and Plan: Initial Cr on arrival was 1.04, Cr on 07/22/18 was 0.87--> today it was 0.96 Plan: -f/u outpatient with PCP (7) Body mass index (BMI) less than 16.5 Current Visit: Yes Status: Chronic Assessment and Plan: BMI is 13.4 Plan: -on dietary supplement ensure - on megace (8) Chronic right hip pain Current Visit: Yes Status: Chronic Assessment and Plan: Pt has chronic right hip pain that radiates down the right leg according to pt Plan: -on Tylenol -f/u with PCP - Time Spent with Patient Total time spent is greater than 50% in coordination of care (as documented) at patient's floor/unit and/or counseling patient: Internal Medicine: Result - Labs CBC & Chem 7: 07/23/18 00:28 07/23/18 00:28 Labs: Short CBC 07/23/18 Range/Units 00:28 WBC 5.0 (4.3-11.1) K/mcL Hgb 12.6 (11.5-15.4) g/dL Hct 40.5 (35.3-44.9) % Plt Count 183 (140-400) K/mcL Neutrophils # 2.7 (1.6-8.9) K/mcL BMP 07/22/18 07/22/18 07/22/18 08:08 13:10 16:09 Sodium 147 H 147 H 148 H Potassium 3.9 4.2 Chloride 117 H 114 H Carbon Dioxide 26 26 BUN 28 H 24 H Creatinine 0.95 0.87 Glucose 104 114 H Calcium 8.4 L 8.5 L 07/22/18 07/23/18 19:42 00:28 Sodium 149 H 148 H Potassium 3.3 L Chloride 115 H Carbon Dioxide 26 BUN 24 H Creatinine 0.96 Glucose 164 H Calcium 8.3 L Consult Discharge Plan - Plan Referrals: Asher Washington Jr, MD [Primary Care Provider] - (5) Major depression, recurrent Qualifiers: Active/Remission status: currently active Major depression episode severity: moderate Qualified Code(s): F33.1 - Major depressive disorder, recurrent, moderate
[2018-07-23] MEDS: Multivit/Ca/Min/Fe/FA 1 TAB TABLET PO SCH (10:06)
[2018-07-23] MEDS: Cyanocobalamin (B-12) 1,000 MCG TABLET PO SCH (10:06)
[2018-07-23] MEDS: Pyridoxine (B-6) 50 MG TABLET PO SCH (10:06)
[2018-07-23] MEDS: Megestrol Acetate 400 MG/10 ML UDC PO SCH (10:06)
[2018-07-23] MEDS: Cholecalciferol (D-3) 1,000 UNIT TABLET PO SCH (10:07)
[2018-07-23] MEDS: Folic Acid 1 MG TABLET PO SCH (10:07)
[2018-07-23 11:46] VITALS: BP 101/64
--- NOTE | 2018-07-23 13:57 | Discharge Summary ---
<Van Herrera - Last Filed: 07/23/18 15:03> - NOTES TO OUTPATIENT PROVIDER Notes to Outpatient Provider: Patient admitted for dehydration, discharged when eating/drinking better; sodium returned to baseline; restarted megace; recommend ensure with meals. Date of Encounter: 07/23/18 - Discharge Diagnosis (1) Dehydration Priority: Primary Status: Acute (2) Hypernatremia Priority: Secondary Status: Acute (3) Anorexia Priority: Secondary Status: Chronic (4) Protein malnutrition Priority: Secondary Status: Chronic (5) Body mass index (BMI) less than 16.5 Priority: Secondary Status: Chronic (6) CKD (chronic kidney disease), stage III Priority: Secondary Status: Chronic (7) Chronic right hip pain Priority: Secondary Status: Chronic Hospital course: I have re-performed and reviewed the history documented by the medical student, and I confirm its accuracy except as noted below. Chronic Hypernatremia, return to baseline range with rehydration. Will continue Megace and Remeron for anorexia. Previously had negative SIADH workup on past hospitalization. Patient with sodium rich diet and limited fluid intake. Patient remained stable throughout hospital stay, plan to discharge today with close follow up with nephrology and PCP. Importance of follow up discussed with patient who stated understanding. Discharge discussed with: patient - Time Spent with Patient Total time spent providing and/or coordinating discharge services: Greater than 30 minutes (40 mins) - Discharge Medications Prescriptions: Megestrol Acetate [Megace] 400 mg PO TIDWM 14 Days #42 udc Mirtazapine [Remeron] 15 mg PO HS 14 Days #14 tablet Home Medications: Cyanocobalamin (Vitamin B-12) [B-12] 500 mcg PO DAILY 07/14/16 [History] Ergocalciferol (VITAMIN D2) [Vitamin D] 400 unit PO DAILY 07/14/16 [History] Folic Acid 0.4 mg PO DAILY 07/14/16 [History] Folic Acid/Multivit-Min/Lutein [Centrum Silver Chewable Tablet] 1 tab PO DAILY 07/14/16 [History] Potassium Chloride [Klor-Con Sprinkle] 10 meq PO BID 07/14/16 [History] Pyridoxine HCl [Vitamin B-6] 50 mg PO DAILY 07/14/16 [History] Raloxifene [Evista] 60 mg PO DAILY 08/19/16 [History] Buspirone HCl [Buspar] 5 mg PO BID 30 Days tablet 08/21/16 [Rx] Omeprazole 20 mg PO DAILY 12/26/16 [History] Megestrol Acetate [Megace] 400 mg PO TIDWM 14 Days #42 udc 07/23/18 [Rx] Mirtazapine [Remeron] 15 mg PO HS 14 Days #14 tablet 07/23/18 [Rx] Allergies/Adverse Reactions: Allergy/AdvReac Type Severity Reaction Status Date / Time No Known Allergies Allergy Verified 03/20/18 15:26 Date of admission: 07/21/18 16:54 Primary care physician: Asher Washington Jr, MD Consults: 07/23/18 13:23 Consult to Nurse Navigator [CONS] Routine Comment: f/u with nephrology and PCP (lost to f/u in past) Discharging clinician: Angela Stark Anticipated date of discharge: 07/23/18 - Constitutional Vitals: Temp Pulse Resp BP Pulse Ox 98.3 F 69 15 101/64 98 07/23/18 11:44 07/23/18 11:44 07/23/18 11:44 07/23/18 11:44 07/23/18 11:44 General appearance: Present: cachectic, cooperative, A&O X 3, pleasant, no acute distress, answers questions appropriately - Head Head exam: Present: atraumatic, normocephalic - Eye Eye exam: Present: normal appearance, conjuntiva pink, sclera anicteric - Neck Neck exam general surgery: Present: full ROM, supple - Respiratory Respiratory exam: Present: CTAB. Absent: respiratory distress, rhonchi, wheezes - Cardiovascular Cardiovascular exam: Present: RRR, +S1, +S2. Absent: gallop, rubs - GI/Abdominal GI/Abdominal exam: Present: normal bowel sounds, soft. Absent: distended, firm, tenderness - Extremities Exam Extremities exam: Present: warm. Absent: calf tenderness, cyanotic, pedal edema - Neurological Exam Neurological exam: Present: alert, oriented X3, no focal deficits - Psychiatric Psychiatric exam: Present: normal affect, normal mood - Skin Skin exam: Present: dry, intact, warm - Patient Status Disposition: Home, Self-Care Condition: Fair Functional capacity at discharge: independent ambulation Overall status at discharge: patient is back to baseline - Discharge Instructions Instructions: Megestrol Acetate (By mouth), Mirtazapine (By mouth), Dehydration (DC), Dehydration (GEN), Anorexia Nervosa (DC), Anorexia Nervosa (GEN) Follow Up With: Asher Washington Jr, MD [Primary Care Provider] - (Please call to make an appointment in 5-7 days.) William Grant DO [Partnered Physician] - (Dr landrum is going to contact you.) Additional Instructions: Continue medications as prescribed. Work to limit processed foods and sodium intake while increasing free water. It is very important that you follow up with your primary care provider, Dr. Washington and also with the kidney specialist. Please return or seek medical care if new or worsening symptoms such as dizziness, confusion, weakness, fall, etc. - Diet and Activity Activity: increase activity as tolerated Diet: low salt diet <Xena Lynn - Last Filed: 07/23/18 15:54> Time of Encounter: 08:34 - Discharge Diagnosis (1) Hypernatremia Priority: Primary Status: Acute Assessment and Plan: Acute on chronic hypernatremia, h/o eating disorder and anorexia, poor PO intake Initial Na was 156 on 07/21/18 Na on 07/22/18 was 149-->today Na is 148 Plan: -IVF were d/c -currently on IV D5% in water -f/u nephrology outpatient -encourage oral rehydration with water (2) Anorexia Priority: Secondary Status: Chronic Assessment and Plan: pt tolerating diet well Plan -oral rehydration with water -continue dietary supplement ensure (3) Body mass index (BMI) less than 16.5 Priority: Secondary Status: Chronic Assessment and Plan: BMI is 13.4 Plan: -on dietary supplement ensure - on megace (4) Chronic right hip pain Priority: Secondary Status: Chronic Assessment and Plan: Pt has chronic right hip pain that radiates down the right leg according to pt Plan: -on Tylenol -f/u with PCP (5) CKD (chronic kidney disease), stage III Priority: Secondary Status: Chronic Assessment and Plan: Initial Cr on arrival was 1.04, Cr on 07/22/18 was 0.87--> today it was 0.96 Plan: -f/u outpatient with PCP (6) Dehydration Priority: Secondary Status: Acute Assessment and Plan: pt has poor PO intake and eating disorder/anorexia Plan: -IVF d/c -currently on D5% in water -continue oral rehydration with water -on potassium chloride tab (7) Protein malnutrition Priority: Secondary Status: Chronic Assessment and Plan: plan -currently on dietary supplement ensure with all meals (8) Major depression, recurrent Priority: Secondary Status: Chronic Assessment and Plan: chronic h/o depression and anxiety Plan: -currently on Buspar and remeron -f/u outpatient with psychiatry Qualifiers: Active/Remission status: currently active Major depression episode severity: moderate Qualified Code(s): F33.1 - Major depressive disorder, recurrent, moderate Hospital course: Ms. Coy is a 67 year old female. Hospital day 2. Ms. Cyo is a 67 Yo Female with a chronic h/o hypernatremia(avg Na 140-150s), anxiety/depression, CKD stage III, eating disorder/anorexia. Pt presented to the ED c/o dehydration, weakness and dizziness that began the night before. Her initial Na on arrival was 156. 07/21/18 Pt received NS bolus while in the ED, rehydration was continued with D5 1/2 NS. Nephrology had recommended drinking 1 gallon of water/day the last time she was inpatient for dehydration in March 2018, during this visit diabetes insipidus was r/o, and pt failed to f/u with nephrology outpatient. Today pt was seen and examined at the bedside. She states she feels better today. She admits to mild fatigue and denies fever, NVD, dizziness, chest pain, SOB, dysphagia, abdominal pain, hematuria, dysuria, edema, numbness, tingling, weakness. She states she has had normal BM and having normal urine output. She admits to eating and drinking well, and was eating breakfast when I entered the room. She does admit to chronic right hip pain today that she manages with tylenol. Pt Na today was 148. - Time Spent with Patient Total time spent providing and/or coordinating discharge services: Date of admission: 07/21/18 16:54 Primary care physician: Asher Washington Jr, MD Consults: 07/23/18 13:23 Consult to Nurse Navigator [CONS] Routine Comment: f/u with nephrology and PCP (lost to f/u in past) - Constitutional Vitals: Temp Pulse Resp BP Pulse Ox 98.3 F 69 15 101/64 98 07/23/18 11:44 07/23/18 11:44 07/23/18 11:44 07/23/18 11:44 07/23/18 11:44 General appearance: Present: cachectic, cooperative, A&O X 3, pleasant, no acute distress, answers questions appropriately - Head Head exam: Present: atraumatic, normocephalic - Respiratory Respiratory exam: Present: CTAB. Absent: rhonchi, wheezes - Cardiovascular Cardiovascular exam: Present: RRR. Absent: diastolic murmur, rubs, systolic murmur - GI/Abdominal GI/Abdominal exam: Present: normal bowel sounds, soft. Absent: distended, tenderness - Extremities Exam Additional comments: no leg edema bilaterally - Skin Skin exam: Present: dry, intact, warm <Angela Stark - Last Filed: 07/23/18 16:18> - NOTES TO OUTPATIENT PROVIDER Notes to Outpatient Provider: Patient hospitalized with hypernatremia and dehydration along with anorexia. Likely due to decreased free water intake at home. Patient was treated with IV fluids containing free water and her sodium levels improved back to her baseline. She does have chronic hypernatremia and will need follow up with nephrology. She is advised to drink only free water and avoid drinking electrolyte-containing supplements. She is also been placed on Megace and Remeron to help with her appetite and depression. She does need to follow up with psychiatry to continue treating her depression. Date of Encounter: 07/23/18 Time of Encounter: 16:16 - Discharge Diagnosis (1) Hypernatremia Status: Acute (2) Anorexia Status: Chronic (3) Body mass index (BMI) less than 16.5 Status: Chronic (4) Chronic right hip pain Status: Chronic (5) CKD (chronic kidney disease), stage III Status: Chronic (6) Dehydration Status: Acute (7) Protein malnutrition Status: Chronic (8) Major depression, recurrent Status: Chronic Qualifiers: Active/Remission status: currently active Major depression episode severity: moderate Qualified Code(s): F33.1 - Major depressive disorder, recurrent, moderate Hospital course: Ms. Coy is a 67 year old female - Time Spent with Patient Total time spent providing and/or coordinating discharge services: Date of admission: 07/21/18 16:54 Primary care physician: Asher Washington Jr, MD Consults: 07/23/18 13:23 Consult to Nurse Navigator [CONS] Routine Comment: f/u with nephrology and PCP (lost to f/u in past) - Constitutional Vitals: Temp Pulse Resp BP Pulse Ox 98.3 F 69 15 101/64 98 07/23/18 11:44 07/23/18 11:44 07/23/18 11:44 07/23/18 11:44 07/23/18 11:44 Exam: . - Attending Attestation I saw evaluated and examined this patient and my medical decision-making was reviewed with the Resident Physician, Van Herrera. I agree with the documented findings, disposition and treatment plan as described except to any changes set forth below. We independently had [id number] contact with the patient. Patient is awake and alert and cooperative. Comfortable. Denies any new complaints. She does appear underweight. Heart sounds are normal. Breath sounds are normal.
== END 2018-07-23 17:20 | disposition home or self-care (01) | DRG 640 ==
LOC: 3BNU 13:34 → EMEROOARM 13:34 → 3BNU 16:18 → SUATTDRO 16:54
PROVIDERS: ADMIT Internal Medicine; ATTEND Internal Medicine

== ENCOUNTER 2022-01-10 15:41 | Observation (INO) ==
[2022-01-10] MEDS ORDERED: Isovue-370 500 ML BOTTLE IVP ONE (17:25)
[2022-01-10 18:02] LABS: Basophils # 0.1 K/mcL (0.0-0.2); Basophils % 0.4 %; Eosinophils # 0.1 K/mcL (0.0-0.6); Eosinophils % 0.5 %; Hematocrit 41.8 % (35.3-44.9); Hemoglobin 13.3 g/dL (11.5-15.4); Immature Granulocytes % 0.8 % (0-4); Lymphocytes # 1.4 K/mcL (0.6-4.6); Lymphocytes % 8.9 %; Mean Corpuscular HGB Conc 31.8 g/dL (31.6-35.5); Mean Corpuscular Hemoglobin 30.4 pg (28.0-33.3); Mean Corpuscular Volume 95.4 fL (83.0-100.0); Mean Platelet Volume 9.1 fL (9.4-12.4); Monocytes # 1.5 K/mcL (0.0-1.3); Monocytes % 9.6 %; Neutrophils # 12.6 K/mcL (1.6-8.9); Platelet Count 341 K/mcL (140-400); Red Blood Count 4.38 M/mcL (3.82-4.97); Red Cell Distribution Width 14.7 % (11.5-14.5); Segmented Neutrophils % 79.8 %; White Blood Count 15.8 K/mcL (4.3-11.1)
[2022-01-10 18:11] LABS: Albumin 4.4 g/dL (3.5-5.7); Albumin/Globulin Ratio 1.3 (1.1-2.2); Bilirubin,Direct 0.1 mg/dL (0.0-0.2); Bilirubin,Indirect 1.2 mg/dL (0.0-1.0); Bilirubin,Total 1.3 mg/dL (0.3-1.0); Calcium 9.7 mg/dL (8.6-10.3); Globulin 3.4 g/dL (2.4-3.5); Potassium 3.7 mEq/L (3.5-5.1); Total Protein 7.8 g/dL (6.4-8.9)
[2022-01-10 18:30] LABS: Bilirubin,Urine Negative (Negative); Blood,Urine Moderate (Negative); Clarity,Urine Clear (Clear); Color,Urine Light-Yellow (Yellow); Glucose,Urine (UA) Normal (Normal); Ketones,Urine Negative (Negative); Leukocyte Esterase,Urine Negative (Negative); Mucus,Urine Few per lpf (None-Few); Nitrite,Urine Negative (Negative); Protein,Urine 50 mg/dL (Neg-Trace); RBC,Urine 50-100 per hpf (0-3); Specific Gravity,Urine 1.016 (1.010-1.025); Squamous Epithelial Cell,Urine Few per hpf (None-Few); Urobilinogen,Urine Normal (Normal)
[2022-01-10] MEDS ORDERED: 0.9 % Sodium Chloride 500 ML IVC ONE (18:59)
[2022-01-10] MEDS ORDERED: Ondansetron 4 MG/2 ML VIAL IVP ONE (19:01)
[2022-01-10] MEDS ORDERED: Melatonin 3 MG TABLET PO PRN (19:23)
[2022-01-10] MEDS ORDERED: Naloxone 0.4 MG/ML INJ IVP PRN (19:23)
[2022-01-10] MEDS ORDERED: Ringers Solution, Lactated 1,000 ML IVC SCH (19:45)
[2022-01-10] MEDS ORDERED: Ondansetron 4 MG/2 ML VIAL IVP PRN (21:00)
[2022-01-11 01:16] LABS: Hematocrit 40.6 % (35.3-44.9); Mean Corpuscular Hemoglobin 30.6 pg (28.0-33.3); Mean Corpuscular Volume 95.5 fL (83.0-100.0); Mean Platelet Volume 9.5 fL (9.4-12.4); Platelet Count 276 K/mcL (140-400); Red Blood Count 4.25 M/mcL (3.82-4.97); Red Cell Distribution Width 14.5 % (11.5-14.5); White Blood Count 16.6 K/mcL (4.3-11.1)
[2022-01-11 02:33] LABS: Calcium 9.2 mg/dL (8.6-10.3); Potassium 4.3 mEq/L (3.5-5.1)
[2022-01-11] MEDS ORDERED: Dextrose 4 GM Chewable Tablets PO PRN ×4 (06:13→13:17)
[2022-01-11] MEDS ORDERED: *HR* Dextrose 50 % in Water (Syg) 50 ML SYRINGE IVP PRN ×2 (06:13→13:17)
[2022-01-11] MEDS ORDERED: D5% in Water 1,000 ML IVC PRN ×2 (06:13→13:17)
[2022-01-11] MEDS ORDERED: cefTRIAXone 1,000 MG in 0.9 % Sodium Chloride 10 ML IVP SCH (09:00)
[2022-01-11] MEDS ORDERED: *HR* HYDROmorphone PF 0.5 MG/0.5 ML SYRINGE IVP PRN (10:33)
[2022-01-11] MEDS ORDERED: *HR* OxyCODONE Immed Rel 5 MG TABLET PO PRN (10:33)
[2022-01-11] MEDS ORDERED: *HR* HYDROmorphone 2 MG TABLET PO PRN (10:33)
[2022-01-11] MEDS ORDERED: Famotidine 20 MG/2 ML VIAL IVP ONE (10:33)
[2022-01-11] MEDS ORDERED: Promethazine 6.25 MG in Water for inj. (sterile) 20 ML IVPB PRN (10:33)
[2022-01-11] MEDS ORDERED: *HR* Labetalol 20 MG/4 ML SYRINGE IVP PRN (10:33)
[2022-01-11] MEDS ORDERED: Ondansetron 4 MG/2 ML VIAL IVP PRN ×2 (10:33→13:17)
[2022-01-11] MEDS ORDERED: ACETAMINOPHEN IVPB ONE (10:33)
[2022-01-11] MEDS ORDERED: *HR* FentaNYL (PF) 100 MCG/2 ML VIAL ONE (11:09)
[2022-01-11] MEDS ORDERED: Lidocaine -MPF 2% 2 ML VIAL ONE (11:09)
[2022-01-11] MEDS ORDERED: *HR* Propofol 200 MG/20 ML VIAL IVP ONE (11:10)
[2022-01-11] MEDS ORDERED: Ondansetron 4 MG/2 ML VIAL ONE (11:14)
[2022-01-11] MEDS ORDERED: *HR* Belladonna Alkaloids/Opium 30 MG RECTAL SUPPOSITORY RC PRN (13:17)
[2022-01-11] MEDS ORDERED: Isovue-370 500 ML BOTTLE IVP ONE (13:17)
[2022-01-11] MEDS ORDERED: Naloxone 0.4 MG/ML INJ IVP PRN (13:17)
[2022-01-11] MEDS ORDERED: Melatonin 3 MG TABLET PO PRN (13:17)
[2022-01-11] MEDS ORDERED: Latanoprost 2.5 ML BOTTLE BOTH EYES SCH (21:00)
[2022-01-12 08:58] LABS: Hematocrit 39.7 % (35.3-44.9); Hemoglobin 12.7 g/dL (11.5-15.4); Mean Corpuscular Hemoglobin 30.5 pg (28.0-33.3); Mean Corpuscular Volume 95.4 fL (83.0-100.0); Mean Platelet Volume 9.6 fL (9.4-12.4); Platelet Count 325 K/mcL (140-400); Red Blood Count 4.16 M/mcL (3.82-4.97); Red Cell Distribution Width 14.5 % (11.5-14.5); White Blood Count 11.8 K/mcL (4.3-11.1)
[2022-01-12] MEDS ORDERED: cefTRIAXone 1,000 MG in 0.9 % Sodium Chloride 10 ML IVP SCH (09:00)
[2022-01-12 09:20] LABS: Calcium 9.8 mg/dL (8.6-10.3); Potassium 4.3 mEq/L (3.5-5.1)
[2022-01-12 10:40] VITALS: BP 173/72; PULSE 75; TEMP 98.1; O2SAT 96
== END 2022-01-12 13:35 | disposition home or self-care (01) ==
LOC: 3ANU 15:41 → EMEROOARM 15:41 → 3ANU 21:09
PROVIDERS: ADMIT Internal Medicine; ATTEND Internal Medicine